=== PATIENT | female | born 1980 | race African-American/Black ===

== ENCOUNTER 2018-07-28 06:05 | Emergency (ER) | payer MEDICAID ==
[~2018-07-28] VITALS: Ht 175.3 cm; Wt 91.0 kg
[~2018-07-28 06:05] MED LIST: PREN-88 PO
[2018-07-28 09:09] LABS: BASOPHILS % 0.4 % (0.0-2.0); EOSINOPHILS % 1.4 % (0.0-5.0); HEMATOCRIT. 36.5 % (36.0-48.0); HEMOGLOBIN. 12.2 g/dL (12.0-16.0); LYMPHOCYTES % 23.5 % (20.0-50.0); MEAN CORPUSCULAR HEMOGLOBIN 30.5 pg (28.0-32.0); MEAN CORPUSCULAR VOLUME 91.3 fL (81.0-99.0); MEAN PLATELET VOLUME 8.6 fl (7.4-10.4); MONOCYTES % 6.7 % (2.0-8.0); PLATELET 213 x1000/uL (130-400); RED CELL DISTRIBUTION WIDTH 14.1 % (11.6-14.6)
[2018-07-28 09:15] LABS: CHLORIDE 107 mEq/L (98-107)
[2018-07-28 09:18] LABS: PROTHROMBIN TIME 10.7 sec (9.6-11.0)
[2018-07-28 09:19] LABS: ETHANOL BLOOD < 10 mg/dL
[2018-07-28 10:29] LABS: CLARITY URINE CLEAR (CLEAR); COLOR URINE DARK YELLOW (YELLOW); KETONES URINE TRACE (NEGATIVE); LEUKOCYTE ESTERASE URINE NEGATIVE (NEGATIVE); NITRITE URINE NEGATIVE (NEGATIVE); OCCULT BLOOD URINE NEGATIVE (NEGATIVE); PH URINE 6.5 (4.5-8.0); PROTEIN URINE NEGATIVE (NEGATIVE); SPECIFIC GRAVITY URINE 1.038 (1.005-1.030)
[2018-07-28 10:48] LABS: *BARBITURATES SCREEN URINE NEGATIVE (NEGATIVE); METHADONE URINE SCREEN NEGATIVE (NEGATIVE); OPIATES URINE SCREEN NEGATIVE (NEGATIVE); PHENCYCLIDINE URINE SCREEN NEGATIVE (NEGATIVE)
[2018-07-28 10:49] LABS: *AMPHETAMINES SCREEN URINE NEGATIVE (NEGATIVE); *BENZODIAZEPINES SCREEN URINE NEGATIVE (NEGATIVE); *COCAINE SCREEN URINE NEGATIVE (NEGATIVE)
[2018-07-28 11:26] LABS: CANNABINOID URINE SCREEN PRESUMTIVE POSITIVE (NEGATIVE)
[2018-07-28 14:33] VITALS: BP 129/74
== END 2018-07-28 14:33 | disposition home or self-care (01) ==
LOC: ER 06:05
DX: O26.891 Other specified pregnancy related conditions, first trimester (principal); R10.84 Generalized abdominal pain; F31.9 Bipolar disorder, unspecified; O99.341 Other mental disorders complicating pregnancy, first trimester; Z3A.12 12 weeks gestation of pregnancy
CPT/HCPCS: 36415; 76801; 80305; 80320; 81025; 84702; 99284; G0480

== ENCOUNTER 2018-12-03 17:39 | Observation (INO) | payer MEDICAID | END 2018-12-03 20:28 | disposition home or self-care (01) | LOC: 8 EST LDRP 17:39 | PROVIDERS: ADMIT Obstetrics & Gynecology; ATTEND Obstetrics & Gynecology | DX: O21.9 Vomiting of pregnancy, unspecified (principal); O26.893 Other specified pregnancy related conditions, third trimester; R05 Cough; J00 Acute nasopharyngitis [common cold]; Z3A.30 30 weeks gestation of pregnancy | CPT/HCPCS: 76805; 76818; 76830; 99281; G0378 ==

== ENCOUNTER 2019-01-20 04:51 | Observation (INO) | payer MEDICAID ==
[~2019-01-20] VITALS: Ht 175.3 cm; Wt 90.7 kg
== END 2019-01-20 06:30 | disposition home or self-care (01) ==
LOC: 8 EST LDRP 04:51
PROVIDERS: ADMIT Obstetrics & Gynecology; ATTEND Obstetrics & Gynecology
DX: O26.893 Other specified pregnancy related conditions, third trimester (principal); R10.30 Lower abdominal pain, unspecified; Z3A.37 37 weeks gestation of pregnancy
CPT/HCPCS: G0378

== ENCOUNTER 2019-02-01 22:28 | Inpatient (IN) | payer MEDICAID ==
[~2019-02-01] VITALS: Ht 175.3 cm; Wt 117.9 kg
[2019-02-01] MEDS ORDERED: DEXT 5%/LR + PITOCIN 20UNITS/L 1,000 ML IV SCH ×2 (23:41→23:55)
[2019-02-01] MEDS ORDERED: LACTATED RINGERS 1,000 ML IV SCH (23:41)
[2019-02-01] MEDS ORDERED: NALOXONE HCL 0.4 MG/ML 1ML VIAL IM PRN (23:45)
[2019-02-01] MEDS ORDERED: CARBOPROST TROMETHAMINE 250 MCG/ML AMPUL IM PRN (23:45)
[2019-02-01] MEDS ORDERED: LIDOCAINE HCL 1% 20ML VIAL (Pyxis) INJ INFIL SCH (23:45)
[2019-02-01] MEDS ORDERED: METHYLERGONOVINE MALEATE 0.2 MG/ML IM PRN (23:45)
[2019-02-01] MEDS ORDERED: BUTORPHANOL TARTRATE 2 MG/ML VIAL IV PRN (23:45)
[2019-02-02] MEDS ORDERED: PENICILLIN G POTASSIUM 5 MMU in DEXT 5% WATER 100 ML IV SCH ×2
[2019-02-02] MEDS ORDERED: DIPHENHYDRAMINE 25MG CAPSULE PO PRN
[2019-02-02] MEDS ORDERED: BISACODYL 10MG SUPP PR PRN
[2019-02-02] MEDS ORDERED: RHO(D) IMMUNE GLOBULIN 300 MCG/SYR IM PRN
[2019-02-02] MEDS ORDERED: LANOLIN OINT 7GM TUBE TOP PRN
[2019-02-02] MEDS ORDERED: METHYLERGONOVINE MALEATE 0.2 MG/ML IM PRN
[2019-02-02] MEDS ORDERED: GLYCERIN/WITCH HAZEL LEAF MEDICATED PAD TOP PRN
[2019-02-02] MEDS ORDERED: HEMORRHOIDAL SUPP PR PRN
[2019-02-02] MEDS ORDERED: OXYCODONE HCL/ACETAMINOPHEN 5/325MG TABLET PO PRN
[2019-02-02] MEDS ORDERED: IBUPROFEN 400MG TABLET PO PRN
[2019-02-02] MEDS: IBUPROFEN 800MG TABLET PO PRN ×3 (00:34→20:58)
[2019-02-02 01:03] LABS: BASOPHILS % 0.4 % (0.0-2.0); EOSINOPHILS % 0.6 % (0.0-5.0); HEMATOCRIT. 36.5 % (36.0-48.0); HEMOGLOBIN. 12.4 g/dL (12.0-16.0); LYMPHOCYTES % 21.6 % (20.0-50.0); MEAN CORPUSCULAR HEMOGLOBIN 31.3 pg (28.0-32.0); MEAN CORPUSCULAR VOLUME 92.3 fL (81.0-99.0); MEAN PLATELET VOLUME 9.6 fl (7.4-10.4); MONOCYTES % 9.9 % (2.0-8.0); NEUTROPHILS % 67.5 % (40.0-76.0); PLATELET 244 x1000/uL (130-400); RED BLOOD CELL COUNT 3.96 mill/uL (4.2-5.4); RED CELL DISTRIBUTION WIDTH 12.6 % (11.6-14.6)
[2019-02-02 01:08] LABS: CLARITY URINE CLEAR (CLEAR); COLOR URINE YELLOW (YELLOW); KETONES URINE NEGATIVE (NEGATIVE); LEUKOCYTE ESTERASE URINE NEGATIVE (NEGATIVE); NITRITE URINE NEGATIVE (NEGATIVE); OCCULT BLOOD URINE NEGATIVE (NEGATIVE); PROTEIN URINE NEGATIVE (NEGATIVE); SPECIFIC GRAVITY URINE 1.027 (1.005-1.030)
[2019-02-02 01:09] LABS: INR 0.9; PARTIAL THROMBOPLASTIN TIME 26.7 sec (23.4-31.0); PROTHROMBIN TIME 9.3 sec (9.6-11.0)
[2019-02-02 01:30] VITALS: BP 114/56
[2019-02-02 01:52] LABS: *AMPHETAMINES SCREEN URINE NEGATIVE (NEGATIVE); *BARBITURATES SCREEN URINE NEGATIVE (NEGATIVE); *BENZODIAZEPINES SCREEN URINE NEGATIVE (NEGATIVE); *COCAINE SCREEN URINE NEGATIVE (NEGATIVE)
[2019-02-02 01:54] LABS: METHADONE URINE SCREEN NEGATIVE (NEGATIVE); OPIATES URINE SCREEN NEGATIVE (NEGATIVE); PHENCYCLIDINE URINE SCREEN NEGATIVE (NEGATIVE)
[2019-02-02 01:55] LABS: CANNABINOID URINE SCREEN NEGATIVE (NEGATIVE)
[2019-02-02] MEDS ORDERED: PENICILLIN G POTASSIUM 2.5 MMU in DEXTROSE 5% WATER 50 ML IV SCH (04:00)
[2019-02-02] MEDS ORDERED: TETANUS, DIPHTHERIA, PERTUSSIS VAC/PF 0.5ML (>7YR OLD) IM ONE (08:00)
[2019-02-02] MEDS ORDERED: SIMETHICONE 80MG TABLET CHEW PO SCH (08:19)
[2019-02-02] MEDS ORDERED: FERROUS SULFATE 325MG TABLET PO SCH (08:19)
[2019-02-02 08:30] VITALS: BP 133/80
[2019-02-02] MEDS ORDERED: PRENATAL VIT/FE FUMARATE/FA TABLET PO SCH (09:00)
[2019-02-02] MEDS ORDERED: INFLUENZA VIRUS VACCINE(AFLURIA) 0.5ML SYR IM ONE (10:00)
[2019-02-02 13:12] LABS: HEPATITIS B SURFACE ANTIGEN NEGATIVE
[2019-02-02 15:40] VITALS: BP 128/86
[2019-02-02 19:30] VITALS: BP 129/72
[2019-02-02] MEDS ORDERED: DOCUSATE SODIUM 100MG CAPSULE PO SCH (21:00)
[2019-02-02 23:45] VITALS: BP 128/70
[2019-02-03] MEDS ORDERED: IBUP-2030 MT (05:55)
[2019-02-03 08:30] VITALS: BP 126/80
== END 2019-02-03 16:00 | disposition home or self-care (01) | DRG 560 ==
LOC: OBSVTOIN 22:28 → 8 EST A/PP 22:28 → 8 EST LDRP 02-02 00:02 → 8EST 02-02 01:15
PROVIDERS: ADMIT Specialist; ATTEND Specialist
PROC: 10E0XZZ Delivery of Products of Conception, External Approach (ICD-10-PCS; principal; 2019-02-01)
DX: O99.344 Other mental disorders complicating childbirth (principal); F31.9 Bipolar disorder, unspecified; Z37.0 Single live birth; Z3A.39 39 weeks gestation of pregnancy
CPT/HCPCS: 36415; 80305; 81003; 86592; 86593; 86703; 86762; 86780; 86850; 86900; 87340; 99281; G0378; J2540; J7060; J7120

== ENCOUNTER 2024-07-23 16:44 | Emergency (ER) | payer MEDICAID ==
[~2024-07-23] VITALS: Ht 175.3 cm; Wt 120.0 kg
[~2024-07-23 16:44] MED LIST changes: +IBUP-2030 MT
[2024-07-23 16:56] VITALS: O2SAT 97
[2024-07-23 17:45] LABS: CARBON DIOXIDE 24 mEq/L (21-32); CHLORIDE 108 mEq/L (98-107); SODIUM 141 mEq/L (136-145)
[2024-07-23 17:46] LABS: CALCIUM 9.1 mg/dL (8.7-10.4)
[2024-07-23 17:47] LABS: HEMATOCRIT 40.5 % (36.0-48.0); MEAN CORPUSCULAR HEMOGLOBIN 28.7 pg (28.0-32.0); MEAN CORPUSCULAR HGB CONC 32.2 g/dL (31.0-37.0); MEAN CORPUSCULAR VOLUME 89.1 fL (81.0-99.0); PLATELET 302 x1000/uL (130-400); RED BLOOD CELL COUNT 4.54 mill/uL (4.2-5.4); RED CELL DISTRIBUTION WIDTH 14.4 % (11.6-14.6); WHITE BLOOD COUNT 7.7 x1000/uL (4.5-11.0)
[2024-07-23 17:51] LABS: CREATININE 0.9 mg/dL (0.6-1.0); ETHANOL BLOOD < 10 mg/dL (<10); GLUCOSE 102 mg/dL (70-105); UREA NITROGEN BLOOD 8 mg/dL (9-23)
[2024-07-23 17:54] LABS: HCG SCREEN NEGATIVE
[2024-07-23 20:34] VITALS: BP 129/76; PULSE 94; RESP 18; TEMP 36.9; O2SAT 97
== END 2024-07-23 20:38 | disposition home or self-care (01) ==
LOC: ER 16:44
DX: G40.A09 Absence epileptic syndrome, not intractable, without status epilepticus (principal); F31.9 Bipolar disorder, unspecified; F20.9 Schizophrenia, unspecified
CPT/HCPCS: 36415; 80048; 80320; 84703; 85027; 99284; G0480